=== PATIENT | male | born 1960 | race Caucasian/White ===

== ENCOUNTER → 2017-05-28 | Outpatient (CLI) | payer OTHER ==
[~2017-05-28] MED LIST: AMLO-145 PO; BENA20TA48 PO; CYCL-319 PO; HYDR-3498 PO; LEVO300T PO; OXYB5TAB22 PO; PRAV10TA43 PO; [UNRECOGNIZED DRUG - CODE] MC
== END | disposition home or self-care (01) ==
LOC: PUL 08:35
PROVIDERS: ATTEND Internal Medicine
DX: R06.02 Shortness of breath (principal)
CPT/HCPCS: 94010; 94726; 94729

== ENCOUNTER 2018-05-30 01:19 | Inpatient (IN) | END 2018-05-31 17:02 | disposition home or self-care (01) | DRG 710 ==